=== PATIENT | male | born 1950 ===

== ENCOUNTER 2024-06-14 08:38 | Day surgery (SDC) | payer OTHER ==
[2024-06-07 10:37] LABS: PH,URINE 5.5 (5.0-8.0); URINE APPEARANCE Clear; URINE BILIRRUBIN Negative (NEGATIVE); URINE BLOOD Negative; URINE COLOR Yellow; URINE GLUCOSE Negative (NEGATIVE); URINE LEUKOCYTE Negative; URINE NITRATE Negative; URINE PROTEIN Negative (NEGATIVE); URINE UROBILINOGEN 0.2 E.U./dl
[2024-06-07 10:39] LABS: HEMATOCRIT 41.4 % (39.0-48.0); HEMOGLOBIN 13.9 g/dL (13-16.00); MEAN CELL VOLUME 92.5 fL (80.0-100.00); MEAN CORPUSCULAR HEMOGLOBIN 31.1 pg (27.00-32.0); MEAN CORPUSCULAR HGB CONC 33.6 g/dl (32.0-36.0); PLATELET COUNT 227 K/uL (150-450); RED BLOOD COUNT 4.48 M/uL (4.00-6.00); RED CELL DISTRIBUTION WIDTH 14.4 % (11.5-14.5)
[2024-06-07 10:42] LABS: URINE BACTERIA 7.5 uL (0.0-1933); URINE EPITHELIAL CELLS 2.6 uL (0.0-38.8); URINE RBC 4.7 uL (0.0-20.8)
[2024-06-07 11:11] LABS: INR 1.03; PARTIAL THROMBOPLASTIN TIME 28.3 SECONDS (22.0-34.0); PROTHROMBIN TIME 10.8 SECONDS (9.0-11.5)
[2024-06-07 11:34] LABS: ALBUMIN 3.8 gm/dL (3.4-5.0); CALCIUM 9.4 mg/dL (8.5-10.1); CREATININE SERUM 1.1 mg/dL (0.70-1.30); GFR 65.08; PHOSPHOROUS 3.3 mg/dL (2.5-4.9); POTASSIUM 4.98 mEq/L (3.5-5.1)
[2024-06-14] MEDS ORDERED: COLACE100 MG PO (11:51)
[2024-06-14] MEDS ORDERED: TRAM1TAB98 PO (11:51)
[2024-06-14] MEDS ORDERED: NEURONTIN300 MG PO (11:51)
[2024-06-14] MEDS ORDERED: METRONIDAZOLE/SODIUM CHLORIDE 500 MG/100 ML PIGGYBACK IV ONE (11:59)
[2024-06-14] MEDS ORDERED: CEFTRIAXONE SODIUM 2,000 MG VIAL ONE (11:59)
[2024-06-14] MEDS ORDERED: BUPIVACAINE HCL/MPF 0.5% 30ML VIAL ONE (12:12)
[2024-06-14] MEDS ORDERED: DIBUCAINE 30 GM TUBE ONE (12:13)
[2024-06-14] MEDS ORDERED: POVIDONE-IODINE 118 ML BOTT TOP ONE ×2 (12:13→13:15)
[2024-06-14] MEDS ORDERED: HEMOSTATIC MATRIX 1 KIT KIT TOP ONE ×2 (12:13→13:15)
[2024-06-14] MEDS ORDERED: CEFTRIAXONE SODIUM 2,000 MG VIAL IV SCH (13:15)
[2024-06-14] MEDS ORDERED: DIBUCAINE 30 GM TUBE RECTAL ONE (13:15)
[2024-06-14] MEDS ORDERED: METRONIDAZOLE/SODIUM CHLORIDE 500 MG/100 ML PIGGYBACK IV SCH (13:15)
[2024-06-14] MEDS ORDERED: BUPIVACAINE HCL 30 ML VIAL IJ ONE (13:15)
== END 2024-06-14 17:30 | disposition home or self-care (01) ==
LOC: CIR.AMB 08:38
PROVIDERS: ATTEND Surgery
DX: K64.1 Second degree hemorrhoids (principal); K64.4 Residual hemorrhoidal skin tags; K62.89 Other specified diseases of anus and rectum